=== PATIENT | female | born 1955 | race Caucasian/White ===

== ENCOUNTER → 2019-03-05 03:38 | Emergency (ER) | payer MEDICARE ==
--- NOTE | 2019-03-05 03:49 | ED ---
HPI Chest Pain - HPI Summary HPI Summary: A 64 y/o female brought in by [facility] accompanied by her , presents to [facility] with a chief complaint of intermittent chest pain over the last four nights. She notes that her pain recurs several times per night. She woke up with a more intense CP which she describes as a pressure, facial numbness and palpitations at 02:20 today for 15-20 minutes with a feeling of impending doom, but her symptoms resolved walking down steps just before EMS arrival. She claims that during the day she does not feel any symptoms and that her symptoms occur at night and wakes her up. She denies SOB, nausea, diaphoresis, but notes some headache. She denies a Hx of IL, but reports a Hx of HTN and also notes that she had panic attacks in her 20s and had her last panic attack 5-7 years ago. She takes medication for her BP. She denies EtOH use , drug use or being under stress, but claims that she stresses out more than other people. She is active, walking an hour a day. - History of Current Complaint Hx Obtained From: Patient, Family/Protozoology Teacher, EMS Onset/Duration: Started Days Ago, Resolved Timing: Intermittent Initial Severity: Moderate Current Severity: None Pain Intensity: 0 Pain Scale Used: 0-10 Numeric Chest Pain Location: Diffuse Chest Pain Radiates: No Character: Pressure/Squeezing Aggravating Factor(s): Nothing Alleviating Factor(s): Nothing Associated Signs and Symptoms: Positive: Palpitations - Allergy/Home Medications Allergies/Adverse Reactions: Allergies Allergy/AdvReac Type Severity Reaction Status Date / Time No Known Allergies Allergy Verified 03/05/19 03:42 Home Medications: Home Medications Losartan/Hydrochlorothiazide [Losartan-Hctz 100-12.5 mg Tab] 1 tab PO DAILY 11/23 [History Confirmed 03/05/19] Verapamil SR TAB* [Calan Sr TAB*] 240 mg PO DAILY 03/05/19 [History Confirmed ] PMH/Surg Hx/FS Hx/Imm Hx Cardiovascular History: Reports: Hx Hypertension Sensory History: Denies: Hx Deafness EENT History: Denies: Hx Deafness - Cancer History Hx Chemotherapy: No Hx Radiation Therapy: No - Surgical History Surgery Procedure, Year, and Place: Infectious Disease History: No Infectious Disease History: Denies: Traveled Outside the [place] in Last 30 Days - Family History Known Family History: Positive: Other - colon cancer - Social History Alcohol Use: Rare Hx Substance Use: No Hx Tobacco Use: No Review of Systems Negative: Fever, Skin Diaphoresis Positive: Palpitations - HAND SPRAYER, Chest Pain - HAND SPRAYER Negative: Shortness Of Breath Negative: Nausea Positive: Headache - HAND SPRAYER, Numbness - HAND SPRAYER All Other Systems Reviewed And Are Negative: Yes Physical Exam - Summary Physical Exam Summary: Appearance: Well-appearing, Well-nourished, lying in bed comfortably Skin: Warm, dry, no obvious rash Eyes: sclera anicteric, no conjunctival pallor ENT: mucous membranes moist, pharynx appears normal Neck: Supple, nontender Respiratory: Clear to auscultation, no signs of respiratory distress Cardiovascular: Normal S1, S2. No murmurs. Normal distal pulses in tibial and radial bilaterally. Abdomen: Soft, nontender, normal active bowel sounds present Musculoskeletal: Normal, Strength/ROM Intact Neurological: A&Ox3, awake and alert, mentation is normal, speech is fluent and appropriate Psychiatric: affect is normal, does not appear anxious or depressed Triage Information Reviewed: Yes Vital Signs On Initial Exam: Initial Vitals Temp Pulse Resp BP Pulse Ox 99.2 F 93 18 166/92 97 03/05/19 03:39 03/05/19 03:39 03/05/19 03:39 03/05/19 03:39 03/05/19 03:39 Vital Signs Reviewed: Yes Diagnostics - Vital Signs Vital Signs Temp Pulse Resp BP Pulse Ox 03/05/19 03:39 99.2 F 93 18 166/92 97 - Laboratory Result Diagrams: 03/05/19 04:22 03/05/19 04:22 Lab Statement: Any lab studies that have been ordered have been reviewed, and results considered in the medical decision making process. - EKG 05:18 Cardiac Rate: NL - 72 bpm EKG Rhythm: Sinus Rhythm Summary of EKG Findings: NSR at 72 BPM, P waves, QRS complex, and T waves are within normal limits, T waves and intervals are normal, no ischemic changes. This is a normal EKG. Chest Pain Course/Dx - Course Course Of Treatment: A 64 y/o female brought in by [facility] ambulance accompanied by her , presents to [facility] with a chief complaint of intermittent chest pain over the last four nights. She notes that her pain recurs several times per night. She woke up with a more intense CP which she describes as a pressure, facial numbness and palpitations at 02:20 today for 15- 20 minutes with a feeling of impending doom, but her symptoms resolved walking down steps just before EMS arrival. The physical exam was unremarkable. A diagnostic workup was ordered abdomen abundance of caution to exclude any obvious evidence of underlying heart or metabolic process leading to her symptoms. Her troponin level is only minimally elevated and in the setting of frequent symptoms over the past several days I believe this is not clinically significant. The remainder of her evaluation was unremarkable. The patient will be discharged home and follow up with her PCP. She is agreeable with this plan. - Diagnoses Provider Diagnoses: Parasomnia, unspecified Discharge - Sign-Out/Discharge Documenting (check all that apply): Patient Departure - DC Patient Received Moderate/Deep Sedation with Procedure: No - Discharge Plan Condition: Good Disposition: HOME Referrals: Belem Cortez MD [Primary Care Provider] - Additional Instructions: I believe you have been suffering from a type of parasomnia. These disorders tend to be stereotypical, one episode similar to the next, and only occur at night while sleeping. I cannot say what has precipitated this, but if it persists I would recommend consulting a sleep specialist; your doctor can refer you to someone. The sleep specialist I suspect would order a sleep study of some sort to try to make a more precise diagnosis. We did not turn up any evidence of any significant cardiac or pulmonary problem as a cause of your episodes. - Billing Disposition and Condition Condition: GOOD Disposition: Home - Attestation Statements Document Initiated by Long: Yes Documenting Scribe: Gil Orellana Provider For Whom Long is Documenting (Include Credential): Adarsh Leon MD Scribe Attestation: I, Gil Orellana, scribed for Adarsh Leon MD on 03/08/19 at 0552. Scribe Documentation Reviewed: Yes Provider Attestation: The documentation as recorded by the Gil stubbs accurately reflects the service I personally performed and the decisions made by me, Adarsh Leon MD Status of [place] Document: Viewed
[2019-03-05 04:30] LABS: ABS Basophils 0.1 10^3/ul (0-0.2); ABS Eosinophils 0.1 10^3/ul (0-0.6); ABS Lymphocytes 1.4 10^3/ul (1.0-4.8); ABS Monocytes 0.4 10^3/ul (0-0.8); ABS Neutrophils 2.9 10^3/ul (1.5-7.7); ABS Nucleated RBC 0 10^3/ul; Eosinophil % 1.5 %; Hematocrit 43 % (33-41); Hemoglobin 14.5 g/dL (12.0-16.0); Lymphocyte % 28.6 %; Mean Corpuscular HGB Conc 34 g/dL (31-36); Mean Corpuscular Hemoglobin 30 pg (27-31); Mean Corpuscular Volume 89 fL (80-97); Mean Platelet Volume 7.9 fL (7.4-10.4); Nucleated Red Blood Cells % 0; Platelet Count 250 10^3/uL (150-450); Red Blood Count 4.83 10^6 /uL (3.70-4.87); Red Cell Distribution Width 14 % (10.5-15); White Blood Count 4.8 10^3/uL (3.5-10.8)
[2019-03-05 04:45] LABS: ALT 16 U/L (7-52); AST 16 U/L (13-39); Albumin 4.3 g/dL (3.2-5.2); Albumin/Globulin Ratio 1.5 (1-3); Alkaline Phosphatase 98 U/L (34-104); Anion Gap 6 mmol/L (2-11); Blood Urea Nitrogen 21 mg/dL (6-24); CO2 Carbon Dioxide 27 mmol/L (22-32); Calcium 9.3 mg/dL (8.6-10.3); Chloride 106 mmol/L (101-111); EGFR African American 101.6 (>60); Globulin 2.8 g/dL (2-4); Glucose 107 mg/dL (70-100); Potassium 3.5 mmol/L (3.5-5.0); Sodium 139 mmol/L (135-145); Total Protein 7.1 g/dL (6.4-8.9)
[2019-03-05 04:50] LABS: Troponin I 0.07 ng/mL (<0.04)
[2019-03-05 05:05] LABS: TSH (Thyroid Stimulating Horm) 1.11 mcIU/mL (0.34-5.60)
[2019-03-05 05:30] VITALS: BP 116/74
== END | disposition home or self-care (01) ==
LOC: ED 03:38
DX: G47.50 Parasomnia, unspecified (principal); I10 Essential (primary) hypertension
CPT/HCPCS: 36415; 80053; 84443; 84484; 85025; 93005; 99283